=== PATIENT | male | born 1975 | race Caucasian/White ===

== ENCOUNTER 2016-09-19 15:55 | Inpatient (IN) ==
[2016-09-19] MEDS ORDERED: NS 1,000 ML IV ONE (18:57)
[2016-09-19] MEDS ORDERED: DILAUDID IV ONE (18:57)
--- NOTE | 2016-09-19 19:03 | PROVIDER DOCUMENTATION ---
HPI-Male Problem - General Chief Complaint: Abscess Stated Complaint: ABSCESS Time Seen by Provider: 09/19/16 18:46 Source: patient Allergies/Adverse Reactions: Patient Allergies Allergy/AdvReac Type Severity Reaction Status Date / Time haloperidol [From Haldol] Allergy Unknown Unknown Verified 09/19/16 17:39 haloperidol lactate * Allergy Unknown Unknown Verified 09/19/16 17:39 [From Haldol] Penicillins Allergy Unknown RASH Verified 09/19/16 17:39 Home Medications: Home Medication List Medication Instructions Recorded Confirmed Last Taken Type Clonazepam [Clonazepam] 1 mg PO DAILY 09/19/16 09/19/16 09/19/16 History Clonidine HCl [Clonidine HCl] 0.1 mg PO BID 09/19/16 09/19/16 09/19/16 History Hum Insulin NPH/Reg Insulin Hm 15 units SQ BID 09/19/16 09/19/16 09/19/16 History [Humulin 70-30 Vial] Hydrocodone/APAP 10 mg/325 mg 10 mg PO PRN PRN 09/19/16 09/19/16 09/19/16 History [Ogema-10] - History of Present Illness-Male Nature of Presenting Problem: 41 yo male with hx of testicular cancer presents with abscess on right scrotum x 2 days. Had a fever of 102 last night, pain started two days ago. Has hx of this problem in the past, has been drained in the ED and in the OR. Pt having fever, is tachy, and exquisitely painful. Has been surgically treated by Dr. Rodriguez in the past and drained in the ED within the last few months. Location of Complaint: reports: scrotal (right scrotal) Radiation: reports: none Quality of Pain: reports: pressure, sharp, throbbing Severity in ED: reports: moderate Onset/Duration: reports: 2 days ago Timing: reports: still present, getting worse Context/Activities at Onset: reports: none Urinary Symptoms: reports: no symptoms Similar Symptoms Previously?: Yes (Has been drained twice in the last year) Recently seen or treated by another doctor?: No Review of Systems - Adult - REVIEW OF SYSTEMS - ADULT Constitutional: reports: fever. denies: chills Eyes: denies: decreased vision, blurred vision Cardiovascular: denies: chest pain Respiratory: denies: cough, shortness of breath, wheezing Genitourinary: denies: discharge, frequent UTI's, hematuria Musculoskeletal: denies: back pain, joint pain, joint swelling Integumentary: reports: skin sores/ulcer (on scrotum) Neurological: denies: dizziness/vertigo, headache/migraines Past History - Adult - PAST MEDICAL HISTORY-ADULT Review of Records: reports: Old Records Reviewed, Nursing Assessment Review, Medications Reviewed, Social history reviewed & non-contributory. Major Childhood Illnesses: reports: denies history Cardiovascular: reports: HTN Respiratory: reports: asthma Gastrointestinal: reports: GERD Obstetrical/Gynecological: reports: denies history Genitourinary: reports: cancer (testicular cancer) Musculoskeletal: reports: denies history Neurological: reports: denies history Psychiatric: reports: anxiety, other (panic attacks, delusions) Endocrine/Immune: reports: denies history Other Conditions: reports: denies history - PRIOR SURGERIES/PROCEDURES Surgical/Procedure History: reports: hernia repair, other (testicular) - IMMUNIZATION STATUS Childhood Immunizations: NUTD Flu Vaccine: NUTD - SOCIAL HISTORY Smoking: cigarettes, less than 1 pack/day Provider spent 3-5 mins advising pt. on dangers of tobacco.: Discussed manners to quit use, and f/u contacts for add'l counseling. Physical Exam-General - PHYSICAL EXAM-ADULT Initial Vital Signs Reviewed: Yes - CONSTITUTIONAL General Appearance: appears well, alert, mild distress - EYES Eyes: PERRL/EOMI, pink conjunctivae. negative: sclera injected, scleral icterus - HEAD, EARS, NOSE, MOUTH & THROAT HENMT: normocephalic/atraumatic, moist mucous membranes, dental decay - NECK Neck: supple. negative: trachial deviation - RESPIRATORY Respiratory: chest non-tender, lungs clear, normal breath sounds, no pleuratic chest pain, no respiratory distress, no accessory muscle use. negative: crackles, rales, rhonchi, stridor, wheezing - CARDIOVASCULAR Cardiovascular: regular rate, rhythm, no edema, tachycardia - GENITOURINARY Male Genitalia: erythema, scrotal swelling, testicular tenderness, other (Two large abscesses in the right scrotum with fluctuance and tenderness with erythema. NO pustule noted, no drainage. Is warm to touch and tense.). negative : epididymal tenderness, herpes-like lesion, hernia mass, urethral discharge, inguinal tenderness - SKIN Integumentary: normal color, swelling, tenderness (in scrotum only) - NEUROLOGIC Neurologic: grossly normal, no motor/sensory deficits - PSYCHIATRIC Psych/Mental Status: normal mood/affect, normal thought content, normal thought process Progress - PLAN OF CARE/RESULTS Progress/Plan/Lab Results: Vital Signs - 8 hr 09/19/16 16:04 09/19/16 20:57 Temperature 99.7 F H Pulse Rate 136 H 101 H Respiratory Rate 18 18 Blood Pressure 130/85 166/74 O2 Sat by Pulse Oximetry 99 99 Laboratory Results - last 24 hr 09/19/16 09/19/16 09/19/16 19:35 19:35 19:35 WBC 10.21 RBC 4.83 Hgb 13.8 L Hct 40.7 L MCV 84.3 MCH 28.6 MCHC 33.9 RDW Std Deviation 15.5 H Plt Count 196 MPV 11.1 H Immature Gran % (Auto) 0.2 Neut % (Auto) 66.6 Lymph % (Auto) 26.7 Centre % (Auto) 5.8 Eos % (Auto) 0.4 Baso % (Auto) 0.3 Immature Gran # (Auto) 0.02 Neut # (Auto) 6.80 H Lymph # (Auto) 2.73 Centre # (Auto) 0.59 Eos # (Auto) 0.04 Baso # (Auto) 0.03 PT INR PTT (Actin FS) Sodium 140 Potassium 3.8 Chloride 101 Carbon Dioxide 26 Anion Gap 13 BUN 8 Creatinine 0.8 Estimated GFR/1.73 m2 > 60 BUN/Creatinine Ratio 10 Glucose 150 H Calculated Osmolality 281 Calcium 9.3 Total Bilirubin 0.48 AST 18 ALT 21 Alkaline Phosphatase 83 Total Protein 6.8 Albumin 3.3 L Globulin 3.5 Albumin/Globulin Ratio 0.9 Plasma Lactate 0.9 09/19/16 19:35 WBC RBC Hgb Hct MCV MCH MCHC RDW Std Deviation Plt Count MPV Immature Gran % (Auto) Neut % (Auto) Lymph % (Auto) Centre % (Auto) Eos % (Auto) Baso % (Auto) Immature Gran # (Auto) Neut # (Auto) Lymph # (Auto) Centre # (Auto) Eos # (Auto) Baso # (Auto) PT 10.1 INR 0.96 PTT (Actin FS) 26.8 Sodium Potassium Chloride Carbon Dioxide Anion Gap BUN Creatinine Estimated GFR/1.73 m2 BUN/Creatinine Ratio Glucose Calculated Osmolality Calcium Total Bilirubin AST ALT Alkaline Phosphatase Total Protein Albumin Globulin Albumin/Globulin Ratio Plasma Lactate Orders Category Date Time Status Admit Patient To Inpatient Status Routine AdmDCTranf 09/19/16 21:49 Ordered Activity - Up Ad Gabriela ORDERED Care 09/19/16 21:52 Active Saline Loc NOW Care 09/19/16 18:57 Active Regular Diet Diet 09/20/16 00:01 Active ANAEROBIC CULTURE [RM] Routine Lab 09/19/16 21:09 Received BLOOD CULTURE [BLDCUL] Stat Lab 09/19/16 19:35 Results BMP [BASIC METABOLIC PANEL] [CHEM] Stat Lab 09/19/16 22:20 Ordered BMP [BASIC METABOLIC PANEL] [CHEM] Timed Lab 09/20/16 06:00 Uncollected CBC WITH DIFF [HEME] Stat Lab 09/19/16 19:35 Completed CBC WITH DIFF [HEME] Stat Lab 09/19/16 22:20 Ordered CBC WITH DIFF [HEME] Timed Lab 09/20/16 06:00 Uncollected COMPREHENSIVE METABOLIC PANEL [CHEM] Stat Lab 09/19/16 19:35 Completed GRAM STAIN [DIREX] Stat Lab 09/19/16 21:09 Received LACTATE, PLASMA [CHEM] Stat Lab 09/19/16 19:35 Completed PROTIME WITH INR [COAG] Stat Lab 09/19/16 19:35 Completed PTT [COAG] Stat Lab 09/19/16 19:35 Completed ROUTINE CULTURE [RM] Routine Lab 09/19/16 21:09 Received 0.9% Sodium Chloride Inj [Ns] 1,000 ml Med 09/19/16 18:57 Discontinued IV 999 mls/hr Hydromorphone [Dilaudid] Med 09/19/16 18:57 Discontinued 1 mg IV NOW ONE Discussed with Dr Goode. Due to pt HR, hx of fever, and hx of having to be surgically drained in the past, recommend contacting Dr. Rodriguez (range conservationist today) for consult for repeat surgery. Labs and blood culture ordered along with fluids. Dr. Rdoriguez at bedside 2048. Will admit pt and perform surgery tomorrow to remove the abscess and repair the scrotum. Will be transferred upstairs. Result Diagrams: 09/19/16 19:35 09/19/16 19:35 - CONSULTS/PCP/HOSPITALIST Notification #1 *Consult/PCP/Hospitalist*: Dr Rodriguez, Urology Time Discussed: 19:37 Reason/Comments: Scrotal abscess #2 Consult: Dr Rodriguez, Urology Time Discussed: 20:49 (At bedside, examined pt and will admit) Consult Disposition: Admit Departure - Departure Time of Disposition Decision: 21:12 DIAGNOSIS: Scrotum, abscess Disposition: ADMITTED INPATIENT 09 Certified Medical Emergency: Emergent Condition: Stable Referrals and Follow-Ups: Rafael Nava MD [Primary Care Provider] - - Critical Care Note This patient required my direct personal management.: No Attestation - Physician/ TARYN Attestation Patient care was provided by Advanced Practice Provider:: Yes Advanced Practice Provider:: Ko Saab Advanced Practice Provider documentation review:: The Mid-level provider documentation, treatment plan and medical decision making was reviewed by the physician who agrees with all treatment and medical decision making by the MLP.
[2016-09-19 20:02] LABS: MANUAL DIFF NEEDED? NO
[2016-09-19 20:08] LABS: BASO% 0.3 % (0.0-0.8); EOS# 0.04 X1000 (0.0-0.7); EOS% 0.4 % (0.0-10.0); HEMATOCRIT 40.7 % (42.0-52.0); HEMOGLOBIN 13.8 g/dL (14.0-18.0); IMM GRAN# 0.02 X1000 (0.0-0.04); IMM GRAN% 0.2 % (0.0-0.5); LYMPH# 2.73 X1000 (1.2-3.4); LYMPH% 26.7 % (20.5-51.1); MCH 28.6 PG (27-31); MCHC 33.9 g/dL (33-37); MCV 84.3 FL (81-99); MONO# 0.59 X1000 (0.11-0.59); MONO% 5.8 % (1.7-9.3); MPV 11.1 FL (7.4-10.4); NEUT% 66.6 % (42.2-75.2); PLT 196 X1000 (130-400); RBC 4.83 XMIL (4.7-6.1)
[2016-09-19 20:19] LABS: INR 0.96; PROTIME 10.1 Seconds (9.2-11.7); PTT 26.8 Seconds (22.0-36.0)
[2016-09-19 20:31] LABS: AGAP 13; ALBUMIN 3.3 g/dL (3.5-5.0); ALKALINE PHOSPHATASE 83 U/L (32-122); BUN 8 mg/dL (8-22); CALCIUM 9.3 mg/dL (8.8-10.2); CHLORIDE 101 mmol/L (98-107); COSMO 281; GOT 18 U/L (10-34); GPT 21 U/L (10-44); POTASSIUM 3.8 mmol/L (3.5-5.1); SODIUM 140 mmol/L (136-145); TCO2 26 mmol/L (25-35); TOTAL BILIRUBIN 0.48 mg/dL (0.20-1.00); TOTAL PROTEIN 6.8 g/dL (6.3-8.3)
[2016-09-19 22:27] LABS: MANUAL DIFF NEEDED? NO
[2016-09-19 22:35] LABS: BASO% 0.3 % (0.0-0.8); EOS# 0.03 X1000 (0.0-0.7); EOS% 0.3 % (0.0-10.0); HEMATOCRIT 39.8 % (42.0-52.0); HEMOGLOBIN 13.4 g/dL (14.0-18.0); IMM GRAN# 0.03 X1000 (0.0-0.04); IMM GRAN% 0.3 % (0.0-0.5); LYMPH# 3.13 X1000 (1.2-3.4); LYMPH% 32.4 % (20.5-51.1); MCH 28.6 PG (27-31); MCHC 33.7 g/dL (33-37); MONO# 0.55 X1000 (0.11-0.59); MONO% 5.7 % (1.7-9.3); MPV 10.9 FL (7.4-10.4); PLT 183 X1000 (130-400); RBC 4.68 XMIL (4.7-6.1)
[2016-09-19 22:48] LABS: AGAP 11; BUN 8 mg/dL (8-22); CALCIUM 8.9 mg/dL (8.8-10.2); CHLORIDE 102 mmol/L (98-107); COSMO 284; SODIUM 141 mmol/L (136-145); TCO2 28 mmol/L (25-35)
[2016-09-19] MEDS ORDERED: VENTOLIN HFA INH PRN (22:59)
[2016-09-19] MEDS: NS 1,000 ML IV SCH (23:00)
[2016-09-19] MEDS: NORCO-7.5 PO PRN (23:25)
[2016-09-19] MEDS: VANCOMYCIN 1 GM/NS 1 GM/250 ML IVPB IV SCH (23:26)
[2016-09-20] MEDS: GENTAMICIN IV SCH (00:39)
[2016-09-20] MEDS: NS IV SCH (00:39)
[2016-09-20] MEDS: MORPHINE IV PRN ×9 (01:57→21:53)
[2016-09-20 07:56] LABS: MANUAL DIFF NEEDED? NO
[2016-09-20 08:06] LABS: BASO% 0.3 % (0.0-0.8); EOS# 0.04 X1000 (0.0-0.7); EOS% 0.5 % (0.0-10.0); HEMATOCRIT 37.6 % (42.0-52.0); HEMOGLOBIN 12.5 g/dL (14.0-18.0); LYMPH% 30.7 % (20.5-51.1); MCH 28.5 PG (27-31); MCHC 33.2 g/dL (33-37); MCV 85.6 FL (81-99); MONO# 0.52 X1000 (0.11-0.59); MONO% 6.7 % (1.7-9.3); MPV 10.9 FL (7.4-10.4); NEUT% 61.8 % (42.2-75.2); PLT 160 X1000 (130-400); RBC 4.39 XMIL (4.7-6.1)
[2016-09-20 08:44] LABS: AGAP 13; BUN 7 mg/dL (8-22); CALCIUM 8.2 mg/dL (8.8-10.2); CHLORIDE 102 mmol/L (98-107); COSMO 282; POTASSIUM 4.1 mmol/L (3.5-5.1); SODIUM 138 mmol/L (136-145); TCO2 23 mmol/L (25-35)
[2016-09-20] MEDS ORDERED: KLONOPIN PO SCH (09:00)
[2016-09-20] MEDS: NS 1,000 ML IV SCH ×3 (09:27→19:12)
[2016-09-20] MEDS: PRILOSEC PO SCH (09:36)
[2016-09-20] MEDS: VANCOMYCIN 1 GM/NS 1 GM/250 ML IVPB IV SCH ×2 (11:49→22:21)
[2016-09-20] MEDS ORDERED: MARCAINE 0.25% PF/EPI 1:200,000 ONE (13:13)
[2016-09-20] MEDS ORDERED: VERSED ONE (13:49)
[2016-09-20] MEDS ORDERED: DIPRIVAN 1% ONE (13:49)
[2016-09-20] MEDS ORDERED: NORCO-10 PO PRN (13:54)
[2016-09-20] MEDS: DILAUDID ONE ×3 (14:00→14:41)
[2016-09-20] MEDS ORDERED: EXTENSION SET 32 IN 4522 ONE (14:47)
[2016-09-20] MEDS ORDERED: XYLOCAINE-MPF 2% ONE (14:47)
[2016-09-20] MEDS ORDERED: ANESTHESIA PB SET 88 IN 5742 ONE (14:47)
[2016-09-20] MEDS ORDERED: LR 1,000 ML ONE (14:47)
[2016-09-20] MEDS ORDERED: DECADRON ONE (14:47)
[2016-09-20] MEDS ORDERED: ZOFRAN ONE (14:47)
[2016-09-20] MEDS ORDERED: HUMULIN R SUBQ ONE (15:16)
[2016-09-20] MEDS ORDERED: INSULIN PEN NEEDLES ONE (15:34)
[2016-09-20] MEDS ORDERED: PNEUMOVAX 23 IM ONE (18:15)
[2016-09-20] MEDS: CATAPRES PO SCH ×2 (21:38→21:39)
[2016-09-20] MEDS: HUMULIN 70/30 SUBQ SCH (21:38)
[2016-09-20] MEDS: PERIDEX MT SCH (21:54)
[2016-09-21] MEDS: GENTAMICIN IV SCH (00:15)
[2016-09-21] MEDS: NS IV SCH (00:15)
[2016-09-21] MEDS: MORPHINE IV PRN ×2 (01:23→09:26)
[2016-09-21] MEDS: NORCO-7.5 PO PRN ×2 (05:07→12:11)
[2016-09-21 06:15] LABS: MANUAL DIFF NEEDED? NO
[2016-09-21 06:23] LABS: BASO% 0.1 % (0.0-0.8); HEMATOCRIT 39.6 % (42.0-52.0); HEMOGLOBIN 13.1 g/dL (14.0-18.0); IMM GRAN# 0.02 X1000 (0.0-0.04); IMM GRAN% 0.2 % (0.0-0.5); LYMPH# 1.74 X1000 (1.2-3.4); LYMPH% 17.6 % (20.5-51.1); MCH 28.2 PG (27-31); MCHC 33.1 g/dL (33-37); MCV 85.3 FL (81-99); MONO# 0.43 X1000 (0.11-0.59); MONO% 4.4 % (1.7-9.3); MPV 11.3 FL (7.4-10.4); NEUT% 77.7 % (42.2-75.2); PLT 212 X1000 (130-400); RBC 4.64 XMIL (4.7-6.1)
[2016-09-21] MEDS: PRILOSEC PO SCH (06:31)
[2016-09-21 06:47] LABS: AGAP 13; BUN 12 mg/dL (8-22); CALCIUM 8.6 mg/dL (8.8-10.2); CHLORIDE 100 mmol/L (98-107); COSMO 287; POTASSIUM 4.3 mmol/L (3.5-5.1); SODIUM 137 mmol/L (136-145); TCO2 24 mmol/L (25-35)
[2016-09-21] MEDS ORDERED: KLONOPIN PO SCH (09:00)
[2016-09-21] MEDS: CATAPRES PO SCH (09:15)
[2016-09-21] MEDS: PERIDEX MT SCH (09:16)
[2016-09-21] MEDS: HUMULIN 70/30 SUBQ SCH (09:30)
[2016-09-21] MEDS: VANCOMYCIN 1 GM/NS 1 GM/250 ML IVPB IV SCH (12:11)
[2016-09-21] MEDS: NS 1,000 ML IV SCH (12:11)
[2016-09-21 13:17] VITALS: BP 147/83
[2016-09-21] MEDS ORDERED: HEPARIN ONE (15:13)
--- NOTE | 2016-09-21 20:51 | DISCHARGE SUMMARY ---
ADMISSION DATE: 09/19/2016 DISCHARGE DATE: 09/21/2016 HOSPITAL COURSE: Patient was admitted on 09/19/2016, received surgical debridement and drainage of a right scrotal abscess on 09/20/2016. Did well. Really wanted to go home yesterday, but because of his significant illness, I rather preferred to keep him overnight for observation. He has done very well. Knows what to do in his wound care, which is sitz baths twice a day, warm soaks and a bandage placed in some fairly snug shorts to keep that in place until healed over. He is certainly welcome to see me in 2 weeks. I recommended that he do so. Because of his diabetic control issues, he needs see Rafael Nava MD and we did have the dietitian see him here in the hospital so we could impact his impressions regarding proper dieting and exercise and weight loss for diabetic control. Very soon he is going to need to pay more attention to that so that he does well. The components of the diabetic exam were all discussed with him, that he needs to have those things checked regularly. So his wound is better. The Betadine packing is out and he has redressed and is anxious for discharge. DISCHARGE IMPRESSION: Status post incision and drainage and debridement of right scrotal abscess, resection of phlegmon there. The plan is for the patient to see me in 2 weeks, see Dr. Nava soon regarding diabetic control. He will have hydrocodone APAP 7.5/325, one every 6 hours as needed pain, 15 written, additional to his usual dose of 10 mg of hydrocodone with APAP 325 mg every 6 hours as needed. He obviously is not to take both at same time. I have recommended he take Motrin as recommended over the counter and he can take up to 3 or 4 200 mg Motrin at that time. He will also take Prilosec once or twice daily and Zantac once or twice daily if he is to stay on that regimen. It will aid in benefit in that it will actually treat the inflammation which is down there and not just the pain, and certainly he can take the hydrocodone additionally provided at night if he is unable to rest for discomfort, but the sitz baths twice a day 20 minutes each will allow him to heal up much more rapidly and we encouraged that. Cultures are pending. So he will go home on Bactrim DS 1 b.i.d. to treat the infection, and he will go home on his usual medications otherwise. I look forward to his followup in 2 weeks. cc: Fam Ni DO
--- NOTE | 2016-09-22 07:17 | OPERATIVE NOTE ---
PROCEDURE DATE : 09/21/2016 PREOPERATIVE DIAGNOSIS: Right scrotal abscess and phlegmon. POSTOPERATIVE DIAGNOSIS: Right scrotal abscess and phlegmon. PROCEDURE PERFORMED: Incision and drainage of right scrotal abscess with resection of phlegmon. SPECIMEN: Phlegmon sent for pathologic exam. SURGEON: Fam Ni DO CHURN OPERATOR MARGARINE: OR staff. ANESTHESIA: General LMA. COMPLICATIONS: None. DRAINS: None. DISPOSITION: Stable. FINDINGS: As described in the body of the dictation. They include the specimen, cultures for aerobes, anaerobes, and Gram stain. DESCRIPTION OF PROCEDURE: The patient was placed in the high lithotomy position, sterilely prepped and draped per routine. Time-out procedure performed. An elliptical section of scrotum near the crease between the scrotum and the right side was resected with copious amounts of beige to brown purulent material with a bad odor drained. Cultures were obtained for aerobes, anaerobes, and another swab for Gram stain transpired. The wound was irrigated out, cleansed. No bleeding. It did not travel any distance up towards the cord on gross inspection and after much probing about proximally to make sure an ascending fasciitis was not evident. We could put our finger through the extent of that which was indurated, so I felt fairly comfortable at this point there was no tracking or corruption proximal. Having said that, the entirety of the area was cleansed and copiously cauterized for hemostasis and was successful in that regard, the tissue being fairly inflamed in nature. About 3 stitches were placed along the most dependent portion of the incision, attaching the scrotal skin to deep structures consistent with marsupialization, and that was repeated cephalad on the incision where a single stitch accomplished the same thing. The purpose was to keep this wound open so that air can get through it, it does not continue the situation which may be anaerobic, allow the wound to heal from the inside out with the skin being the last to close. Betadine soaked Kerlix was placed in the wound. ABDs were applied and mesh pants were put in place to hold the drain there. You can try warm soaks and the packing and dressing changed twice a day by the staff. The Betadine packing has to be removed in the a.m. The patient will be watched overnight as he has done before as he has had this occur several times and, in this case, we resolved the recurrences in his left side. This is the first time he had gotten fluid in his right side, and hopefully this will permanently address his concerns. Once he gets home, he will redress that twice daily, warm soaks 20 minutes twice a day. We will watch him overnight, recheck his white count, monitor his fever curve, and watch for his culture results. A set of cultures was also done in the emergency room the night before the procedure. At any rate, the patient did well, was discharged to recovery stable. We will place on first floor for overnight observation.
== END 2016-09-21 15:22 | disposition home or self-care (01) ==
LOC: ED 15:55 → EDIPHOLD 22:50 → 4N 09-20 13:55
PROVIDERS: ADMIT Urology; ATTEND Urology